=== PATIENT | female | born 2005 | race Caucasian/White ===

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

== ENCOUNTER → 2024-04-13 | Outpatient (CLI) | payer BC ==
[~2024-04-13] MED LIST changes: +FYCOMPA8 MG PO; +LAMOTRIGINE200 MG PO
== END ==
LOC: LAB 16:08
DX: R05.9 Cough, unspecified (principal)

== ENCOUNTER 2024-04-29 23:01 | Emergency (ER) | payer BC ==
[~2024-04-29] VITALS: Wt 48.2 kg
[2024-04-29] MEDS ORDERED: DUPIXENT P300 MG/2 M SQ (23:27)
[2024-04-29] MEDS ORDERED: OLANZAPINE5 M3 PO (23:33)
[2024-04-29 23:40] VITALS: BP 106/83
== END 2024-04-29 23:40 | disposition home or self-care (01) ==
LOC: ED 23:01
DX: S62.635A Displaced fracture of distal phalanx of left ring finger, initial encounter for closed fracture (principal); Y04.0XXA Assault by unarmed brawl or fight, initial encounter